=== PATIENT | female | born 1975 | race Caucasian/White ===

== ENCOUNTER → 2018-10-21 | Outpatient (CLI) | payer OTHER | LOC: COL.RAD 07:43 | DX: R10.9 Unspecified abdominal pain (principal); R10.13 Epigastric pain; R11.2 Nausea with vomiting, unspecified; R63.4 Abnormal weight loss | CPT/HCPCS: A9541 ==

== ENCOUNTER → 2018-10-28 | Outpatient (CLI) | payer OTHER | LOC: COL.RAD 08:08 | DX: K80.20 Calculus of gallbladder without cholecystitis without obstruction (principal); R63.4 Abnormal weight loss ==

== ENCOUNTER → 2018-11-04 | Outpatient (CLI) | payer OTHER | LOC: COL.RAD 09:50 | DX: R63.4 Abnormal weight loss (principal); R11.2 Nausea with vomiting, unspecified; R10.13 Epigastric pain | CPT/HCPCS: A9537 ==